=== PATIENT | female | born 1960 | race Asian ===

== ENCOUNTER 2020-02-07 20:37 | Inpatient (IN) | payer BC, OTHER ==
[~2020-02-07] VITALS: Ht 157.5 cm; Wt 63.5 kg
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
--- NOTE | 2020-02-07 20:58 | NUR ---
Urine provided and sent to lab
--- NOTE | 2020-02-07 21:00 | NUR ---
[facility]F[employer] HARVESTER AT BEDSIDE FOR LABS.
[2020-02-07 21:03] LABS: BASOPHILS # (AUTO) 0.1 /CMM (0.0-0.2); BASOPHILS % (AUTO) 0.7 % (0.0-2.0); EOSINOPHILS % (AUTO) 1.5 % (0.0-6.0); HEMATOCRIT 45 % (33-45); HEMOGLOBIN 14.9 g/dL (11.5-14.8); LYMPHOCYTES # (AUTO) 4.1 /CMM (0.8-4.8); LYMPHOCYTES % (AUTO) 39.2 % (20.0-44.0); MEAN CORPUSCULAR HGB CONC 33 g/dl (31.0-36.0); MEAN CORPUSCULAR VOLUME 93 fL (82-100); MONOCYTES # (AUTO) 0.3 /CMM (0.1-1.30); MONOCYTES % (AUTO) 3.3 % (2.0-12.0); NEUTROPHILS # (AUTO) 5.7 /CMM (1.8-8.9); NEUTROPHILS % (AUTO) 55.3 % (43.0-81.0); PLATELET COUNT (AUTO) 241 /CMM (150-450); RED BLOOD CELL COUNT(AUTO) 4.87 MIL/uL (4.0-5.2); WHITE BLOOD COUNT (AUTO) 10.4 K/uL (4.3-11.0)
[2020-02-07 21:04] LABS: APPEARANCE,URINE Clear (CLEAR); BILIRUBIN,URINE Negative (NEGATIVE); BLOOD, URINE Negative Ery/uL (NEGATIVE); COLOR,URINE Yellow (YELLOW); KETONES,URINE Negative (NEGATIVE); LEUKOCYTE ESTERASE ,URINE Small (NEGATIVE); NITRITE, URINE Negative (NEGATIVE); PROTEIN,URINE Negative (NEGATIVE); UGLUCOSE Negative (NEGATIVE); UROBILINOGEN,URINE 0.2 EU/dL (0.2)
[2020-02-07 21:15] LABS: ALANINE AMINOTRANSFERASE 19 U/L (12-78); ALBUMIN 3.8 g/dL (3.4-5.0); ALCOHOL, BLOOD < 3 mg/dL (0-0); ALKALINE PHOSPHATASE 93 U/L (46-116); ASPARTATE AMINOTRANSFERASE 17 U/L (15-37); BILIRUBIN,DIRECT 0.1 mg/dL (0.0-0.2); BILIRUBIN,TOTAL 0.6 mg/dL (0.2-1.0); CALCIUM, SERUM 8.9 mg/dL (8.5-10.1); CARBON DIOXIDE 31 mmol/L (21-32); CHLORIDE 105 mmol/L (98-107); CREATININE 0.8 mg/dL (0.6-1.3); GLUCOSE 106 mg/dL (74-106); POTASSIUM 3.6 mmol/L (3.5-5.1); SODIUM SERUM 141 mmol/L (136-145); TOTAL PROTEIN, SERUM 7.4 g/dL (6.4-8.2); UREA NITROGEN, BLOOD 7 mg/dL (7-18)
[2020-02-07 21:16] LABS: ACETAMINOPHEN 0 ug/ml (10-30); SALICYLATE 2.1 mg/dL (2.8-20.0)
--- NOTE | 2020-02-07 21:23 | NUR ---
NO MED RECON.
--- NOTE | 2020-02-07 21:27 | NUR ---
GPS 218-1
--- NOTE | 2020-02-07 21:39 | NUR ---
Patient is resting comfortably in bed. Easily aroused. VSS.
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
--- NOTE | 2020-02-07 22:30 | NUR ---
GPS/KNAPSACK SPRAYER NOTES: 59 YEAR OLD FEMALE ADMITTED TO UNIT ON A 5150 HOLD FOR DTO. PT. A/O X2-3. NO DISTRESS OR AGITATION NOTED. PT. ORIENTED TO UNIT POLICIES, PROTOCOLS AND PROCEDURES. SAFETY ENVIRONMENT OBSERVED AT ALL TIMES WITH CALL RAMOS WITHIN REACH. MEDICAL AND PSYCH MADE AWARE OF PT. ADMISSION TO UNIT. FAMILY ALSO CALLED AND LEFT MESSAGE TO CALL BACK REGARDING PT. ADMISSION.
[2020-02-07 22:36] VITALS: BP 167/92
[2020-02-07] MEDS ORDERED: LORAZEPAM 1 MG TABLET PO PRN (23:00)
[2020-02-07] MEDS ORDERED: ZOLPIDEM TARTRATE 5 MG TABLET PO PRN (23:00)
[2020-02-07] MEDS ORDERED: MAGNESIUM HYDROXIDE 30 ML UDC PO PRN (23:00)
[2020-02-07] MEDS ORDERED: MAG HYDROX/AL HYDROX/SIMETH 30 ML UDC PO PRN (23:00)
[2020-02-07] MEDS ORDERED: ACETAMINOPHEN 325 MG TABLET PO PRN (23:00)
[2020-02-07] MEDS ORDERED: BLOOD SUGAR DIAGNOSTIC 1 EACH STRIP IN ONE (23:30)
[2020-02-08] MEDS ORDERED: hydrALAZINE HCL 25 MG TABLET PO PRN
--- NOTE | 2020-02-08 00:03 | NUR ---
GPS RN NOTES, PATIENT VITAL SIGNS ARE FOLLOWS B/P 167/92, PULSE 84, RESPIRATIONS 20, TEMP 97.9, SPO2 98%. DR LAINEZ ON THE FLOOR DOING ROUNDS AND MADE AWARE OF MY FINDINGS. DR LAINEZ ORDERED TO GIVE 25 MG OF HYDRALAZINE Q6HR PRN IF SYSTOLIC BLOOD PRESSURE IS GREATER THAN 160 MM Hg OR IF DIASTOLIC BLOOD PRESSURE IS GREATER THAN 100 MM Hg. ALL ORDERS NOTED AND CARRIED OUT WILL CONTINUE TO MONITOR THIS PATIENT WITH THE HELP OF STAFF.
[2020-02-08 00:23] VITALS: BP 152/89
[2020-02-08] MEDS ORDERED: RISP3TAB14 PO (05:41)
[2020-02-08] MEDS ORDERED: SIMV10TA98 PO (05:42)
[2020-02-08] MEDS ORDERED: RISP1TAB27 PO (05:42)
[2020-02-08] MEDS ORDERED: GABA-534 PO (05:43)
[2020-02-08] MEDS ORDERED: ARIP10TA17 PO (05:44)
[2020-02-08] MEDS ORDERED: ARIP15TA8 PO (05:45)
[2020-02-08] MEDS ORDERED: ASPI-1498 PO (05:46)
[2020-02-08] MEDS ORDERED: HYDR25TA4 PO (05:47)
[2020-02-08 08:00] VITALS: BP 153/99
[2020-02-08] MEDS: ASPIRIN EC 81 MG TABLET.DR PO SCH (08:50)
[2020-02-08] MEDS: HYDROCHLOROTHIAZIDE 25 MG TABLET PO SCH (08:50)
--- NOTE | 2020-02-08 11:46 | NUR ---
Family Contact: SW called the pts , Amos ([phone]), and left a voicemail stating that the SW would like to discuss the pts treatment and initial discharge plan.
--- NOTE | 2020-02-08 11:57 | NUR ---
Family Contact: Pts , Amos ([phone]), called the SW back and stated that the pt has not been "herself" in about 5 years and he feels that certain medications do not work for her well. Pts stated that he would be happy to inform the MD about those medications. SW then confirmed that once the pt is stable that the pt can be discharged back to her home.
[2020-02-08] MEDS: DIVALPROEX SODIUM 125 MG CAP.SPRINK PO SCH ×2 (12:11→21:07)
[2020-02-08] MEDS: risperiDONE 1 MG TABLET PO SCH ×2 (12:11→17:42)
--- NOTE | 2020-02-08 13:06 | NUR ---
Initial Discharge Plan: Pt currently resides at her home with her located at [address] [place] [address]. Per pts , Amos ([phone]), pt can return to their home at discharge. SW will work with the MD and the pt regarding appropriate discharge planning. SW will form a safe and proper discharge.
[2020-02-08 16:14] VITALS: BP 129/73
[2020-02-08 20:20] VITALS: BP 107/65
[2020-02-08] MEDS: SIMVASTATIN 10 MG TABLET PO SCH (21:07)
--- NOTE | 2020-02-09 07:30 | NUR ---
RECEIVED PT. ALERT AND ORIENTED X2-3. NO COMPLAINTS OFFERED.
[2020-02-09 07:37] LABS: BASOPHILS % (AUTO) 0.6 % (0.0-2.0); EOSINOPHILS % (AUTO) 1.9 % (0.0-6.0); HEMATOCRIT 43 % (33-45); HEMOGLOBIN 14.1 g/dL (11.5-14.8); LYMPHOCYTES # (AUTO) 3.5 /CMM (0.8-4.8); LYMPHOCYTES % (AUTO) 44.6 % (20.0-44.0); MEAN CORPUSCULAR HGB CONC 33 g/dl (31.0-36.0); MEAN CORPUSCULAR VOLUME 93 fL (82-100); MONOCYTES # (AUTO) 0.4 /CMM (0.1-1.30); MONOCYTES % (AUTO) 4.5 % (2.0-12.0); NEUTROPHILS # (AUTO) 3.8 /CMM (1.8-8.9); NEUTROPHILS % (AUTO) 48.4 % (43.0-81.0); PLATELET COUNT (AUTO) 222 /CMM (150-450); RED BLOOD CELL COUNT(AUTO) 4.62 MIL/uL (4.0-5.2); WHITE BLOOD COUNT (AUTO) 7.9 K/uL (4.3-11.0)
[2020-02-09 07:42] LABS: CREATININE 0.7 mg/dL (0.6-1.3); POTASSIUM 3.9 mmol/L (3.5-5.1)
[2020-02-09 08:00] VITALS: BP 142/77
[2020-02-09] MEDS: risperiDONE 1 MG TABLET PO SCH ×2 (09:01→17:37)
[2020-02-09] MEDS: DIVALPROEX SODIUM 125 MG CAP.SPRINK PO SCH ×2 (09:02→21:08)
[2020-02-09] MEDS: ASPIRIN EC 81 MG TABLET.DR PO SCH (09:02)
[2020-02-09] MEDS: HYDROCHLOROTHIAZIDE 25 MG TABLET PO SCH (09:02)
[2020-02-09 16:00] VITALS: BP 134/78
--- NOTE | 2020-02-09 16:13 | NUR ---
RESTING IN BED,NO COMPLAINTS.
[2020-02-09 17:16] LABS: BACTERIA,URINE Few /HPF (None Seen); RBC,URINE 0-2 /HPF (0-2)
[2020-02-09 17:17] LABS: SQUAMOUS EPITHELIAL CELL,UR Few /HPF (None Seen)
[2020-02-09 20:00] VITALS: BP 126/69
[2020-02-09] MEDS: SIMVASTATIN 10 MG TABLET PO SCH (21:08)
[2020-02-10 08:00] VITALS: BP 147/80
[2020-02-10] MEDS: ASPIRIN EC 81 MG TABLET.DR PO SCH (08:39)
[2020-02-10] MEDS: HYDROCHLOROTHIAZIDE 25 MG TABLET PO SCH (08:39)
[2020-02-10] MEDS: DIVALPROEX SODIUM 125 MG CAP.SPRINK PO SCH ×2 (08:39→21:06)
[2020-02-10] MEDS: risperiDONE 1 MG TABLET PO SCH ×2 (08:39→17:11)
[2020-02-10 16:00] VITALS: BP 146/85
[2020-02-10 20:35] VITALS: BP 121/64
[2020-02-10] MEDS: SIMVASTATIN 10 MG TABLET PO SCH (21:06)
--- NOTE | 2020-02-11 05:15 | NUR ---
RN NOTE: Refused skin assessment.
[2020-02-11 08:00] VITALS: BP 135/74
[2020-02-11] MEDS: DIVALPROEX SODIUM 125 MG CAP.SPRINK PO SCH ×2 (08:18→20:13)
[2020-02-11] MEDS: risperiDONE 1 MG TABLET PO SCH ×2 (08:18→16:34)
[2020-02-11] MEDS: ASPIRIN EC 81 MG TABLET.DR PO SCH (08:18)
[2020-02-11] MEDS: HYDROCHLOROTHIAZIDE 25 MG TABLET PO SCH (08:19)
[2020-02-11 16:00] VITALS: BP 132/53
[2020-02-11 20:46] VITALS: BP 131/71
[2020-02-11] MEDS: SIMVASTATIN 10 MG TABLET PO SCH (21:26)
[2020-02-12 08:00] VITALS: BP 146/95
--- NOTE | 2020-02-12 08:44 | NUR ---
UR NOTE: Received a call from Andreina @ [employer] and was given auth#: [id number] for 6 days (02/06 to 02/11) with review due on the 02/13/20.
[2020-02-12] MEDS: DIVALPROEX SODIUM 125 MG CAP.SPRINK PO SCH ×3 (09:41→16:44)
[2020-02-12] MEDS: ASPIRIN EC 81 MG TABLET.DR PO SCH (09:41)
[2020-02-12] MEDS: risperiDONE 1 MG TABLET PO SCH ×3 (09:42→16:44)
[2020-02-12] MEDS: HYDROCHLOROTHIAZIDE 25 MG TABLET PO SCH (09:43)
[2020-02-12 16:00] VITALS: BP 124/73
[2020-02-12 20:16] VITALS: BP 148/88
[2020-02-12] MEDS: SIMVASTATIN 10 MG TABLET PO SCH (21:20)
[2020-02-13 08:00] VITALS: BP 139/96
[2020-02-13] MEDS: HYDROCHLOROTHIAZIDE 25 MG TABLET PO SCH (08:23)
[2020-02-13] MEDS: ASPIRIN EC 81 MG TABLET.DR PO SCH (08:23)
[2020-02-13] MEDS: risperiDONE 1 MG TABLET PO SCH ×3 (08:23→16:09)
[2020-02-13] MEDS: DIVALPROEX SODIUM 125 MG CAP.SPRINK PO SCH ×3 (08:23→16:09)
--- NOTE | 2020-02-13 10:07 | NUR ---
UR Note: LUIZ called the pts [facility] Physical Chemist, Jaleesa ([phone] ext [phone]), and left a clinical on her voicemail. LUIZ requested coverage for 02/13/20 and informed her that the pt will be discharged back home the following day.
--- NOTE | 2020-02-13 10:08 | NUR ---
Family Contact: LUIZ called the pts , Amos ([phone]), and informed him that the MD is planning on discharging the pt the following day back home. LUIZ arranged the pick out hand time to be between 1-2pm as the pts is waiting on a company call in the morning. LUIZ reiterated the importance of the pt to continue taking the medications once she returns home to continue stabilization.
[2020-02-13 16:00] VITALS: BP 111/73
[2020-02-13 20:10] VITALS: BP 124/61
[2020-02-13] MEDS: SIMVASTATIN 10 MG TABLET PO SCH (21:11)
[2020-02-14 08:00] VITALS: BP 121/69
--- NOTE | 2020-02-14 08:53 | NUR ---
Dr. Arcos gave and order to D/C hold and D/C home and to follow up with the psychiatrist Dr. [place]ost[place] [address] [facility], [place] [address] with the tel# of [phone] and to follow up with the interniwst Dr. Rod Jane at [address] [facility] [place] [address] with the tel # of [phone]. Addendum: 02/14/20 at 1357 by KRISTINE BRAN RN Pt. without distress, denies suicidal and homicidal. Belongings ready and pt. signed the discharge papers. Emperatriz Pereyra (RAISSA) made aware of the discharge and reconciled the meds.
[2020-02-14] MEDS: ASPIRIN EC 81 MG TABLET.DR PO SCH (09:02)
[2020-02-14] MEDS: risperiDONE 1 MG TABLET PO SCH ×2 (09:02→13:19)
[2020-02-14] MEDS: DIVALPROEX SODIUM 125 MG CAP.SPRINK PO SCH ×2 (09:02→13:19)
[2020-02-14 09:03] VITALS: BP 121/69
[2020-02-14] MEDS: HYDROCHLOROTHIAZIDE 25 MG TABLET PO SCH (09:03)
--- NOTE | 2020-02-14 13:35 | NUR ---
Pt. left the unit with the discharge papers. Pt. left the unit via a wheelchair and wheeled by staff to the [facility]. Pt. without distress and on stable condition. Pt. was picked up by her Amos Winkler. Pt. and was instructed on meds to continue at home and advised to make a follow up to his psychiatrist and classification inspector. V/S taken upon discharge: BP 142/90, NC 76, RR 18, temp 98.1 and oxygen sat 96%.
--- NOTE | 2020-02-14 15:41 | NUR ---
Discharge Note: [place] [address] [place] [address]. Pts , Amos ([phone]), picked the pt up around 2pm. Upon discharge, the pt appeared to be in a euthymic mood and presented with a distressed affect. Pt appeared to be alert and oriented x4 (time, place, self and situation). Pt denied both suicidal and homicidal ideation as well as auditory and visual hallucinations. Pt appears to be ambulatory with a steady gait. Pt appears to be groomed and appropriately dressed. Pt will continue to be under the care of psychiatrist, Dr. Kostas Almanza, located at [address] [facility] [address] [address]; and automotive glass mechanic, Dr. Rod Jane, [place] [address] [place] [address]; .
--- NOTE | 2020-02-15 16:32 | NUR ---
Discharge Line Contact: SW called the [facility] Discharge Line ([phone]) and provided the pts discharge information.
== END 2020-02-14 13:35 | disposition home or self-care (01) | DRG 885 ==
LOC: ER 20:37 → GPS 21:35 → GPSOV 23:29 → GPS 23:38
PROVIDERS: ADMIT Psychiatry & Neurology Psychiatry; ATTEND Student in an Organized Health Care Education/Training Program
DX: F29 Unspecified psychosis not due to a substance or known physiological condition (principal); F31.2 Bipolar disorder, current episode manic severe with psychotic features; F41.9 Anxiety disorder, unspecified; I10 Essential (primary) hypertension; E78.5 Hyperlipidemia, unspecified
CPT/HCPCS: 36415; 80048-TC; 80061-TC; 80076-TC; 80164-TC; 80305; 81000-TC; 82962-TC; 84443-TC; 85025-TC; 87081-TC; G0480